=== PATIENT | female | born 1995 | race Caucasian/White ===

== ENCOUNTER → 2019-09-10 | Outpatient (REF) | payer OTHER | LOC: M SFHCLERA 10:53 | PROVIDERS: ATTEND Nurse Practitioner Family | DX: J02.9 Acute pharyngitis, unspecified (principal) ==

== ENCOUNTER → 2020-03-06 | Outpatient (REF) | payer OTHER ==
[2020-03-06 16:31] LABS: BASO % 0.4 % (0.0-1.0); EOS # 0.1 10^3/uL (0.0-0.5); EOS % 1.5 % (0.0-3.0); HEMATOCRIT 40.2 % (36.0-47.0); HEMOGLOBIN 13.3 g/dl (12.0-15.5); LYMPH # 2.1 10^3/uL (1.5-5.0); LYMPH % 27.5 % (24.0-44.0); MEAN CORPUSCULAR HEMOGLOBIN 28.9 pg (27.0-33.0); MEAN CORPUSCULAR HGB CONC 33.1 g/dl (32.0-36.5); MEAN CORPUSCULAR VOLUME 87.2 fl (80.0-96.0); MONO # 0.7 10^3/uL (0.0-0.8); MONO % 8.5 % (0.0-5.0); NEUTROPHILS # 4.8 10^3/uL (1.5-8.5); NEUTROPHILS % 61.7 % (36.0-66.0); PLATELET COUNT, AUTOMATED 299 10^3/uL (150-450); RED BLOOD COUNT 4.61 10^6/uL (4.00-5.40); WHITE BLOOD COUNT 7.8 10^3/uL (4.0-10.0)
[2020-03-06 16:40] LABS: HCG, SERUM QUANTITATIVE < 1.0 MIU/ML
[2020-03-06 17:33] LABS: FOLLICLE STIMULATING HORMONE 3.9 mIU/mL; LUTEINIZING HORMONE 11.5 mIU/mL
== END ==
LOC: M LAB REF 16:03
PROVIDERS: ATTEND Obstetrics & Gynecology
DX: N92.1 Excessive and frequent menstruation with irregular cycle (principal)

== ENCOUNTER → 2020-03-08 | Outpatient (CLI) | payer OTHER ==
--- NOTE | 2020-03-08 08:27 | REP ---
PELVIC SONOGRAPHY: HISTORY: Abnormal menstruation. Irregular cycle. FINDINGS: Transabdominal and transvaginal scanning are performed. Uterine dimensions are normal measured at 7.2 x 3.0 x 4.1 cm. Endometrial echo is at 0.2 cm in thickness. No focal uterine mass is seen. No free fluid is noted. Transabdominal scanning is inhibited by lack of full bladder. Normal ovaries seen bilaterally. Right ovary measures 4.9 x 2.3 x 2.5 cm. Left ovarian dimensions are 3.8 x 2.2 x 2.1 cm. Doppler flow is present in both ovaries, resistive indices are 0.53 and 0.44 on the right and left respectively. IMPRESSION: Normal pelvic sonography.
== END ==
LOC: M WHC 07:24
PROVIDERS: ATTEND Obstetrics & Gynecology
DX: N92.6 Irregular menstruation, unspecified (principal)

== ENCOUNTER → 2020-09-09 | Outpatient (CLI) | payer SELFPAY | LOC: M LABSMTC 11:42 | PROVIDERS: ATTEND Family Medicine | DX: Z20.828 Contact with and (suspected) exposure to other viral communicable diseases (principal) ==